=== PATIENT | male | born 1995 | race Caucasian/White ===

== ENCOUNTER 2016-08-23 23:48 | Emergency (ER) | payer SELFPAY ==
[~2016-08-23] VITALS: Ht 182.8 cm; Wt 104.3 kg
[~2016-08-23 23:48] MED LIST: ALBUTEROL0.09 MG/A2 INH; BACTRIM DS 8001 TA1 PO; CLARITIN10 MG PO; CYCLOBENZAPRINE10 MG PO; DICLOFENAC POTA50 MG PO; KEFLEX500 M1 PO; MEDROL DOSEPAK4 MG PO; MOTRIN400 MG PO; MOTRIN800 MG PO; Motrin,Rufen800 MG PO; NAPROSYN500 MG PO; NKHM; ULTRAM50 MG PO; ZITHROMAX Z PA250 MG PO
== END 2016-08-24 02:20 | disposition home or self-care (01) ==
LOC: ED 23:48
DX: S60.222A Contusion of left hand, initial encounter (principal); F17.200 Nicotine dependence, unspecified, uncomplicated; W23.0XXA Caught, crushed, jammed, or pinched between moving objects, initial encounter; Y93.89 Activity, other specified; Y92.89 Other specified places as the place of occurrence of the external cause; Y99.9 Unspecified external cause status

== ENCOUNTER 2016-09-27 08:22 | Emergency (ER) | payer SELFPAY ==
[~2016-09-27] VITALS: Wt 104.3 kg
[2016-09-27] MEDS ORDERED: Motrin,Rufen800 MG PO (10:03)
== END 2016-09-27 10:20 | disposition home or self-care (01) ==
LOC: ED 08:22
DX: S60.222A Contusion of left hand, initial encounter (principal); F17.200 Nicotine dependence, unspecified, uncomplicated; W23.0XXA Caught, crushed, jammed, or pinched between moving objects, initial encounter; Y93.89 Activity, other specified; Y92.89 Other specified places as the place of occurrence of the external cause; Y99.8 Other external cause status

== ENCOUNTER 2018-11-04 13:18 | Emergency (ER) | payer SELFPAY ==
[~2018-11-04] VITALS: Ht 182.8 cm; Wt 104.3 kg
[2018-11-04] MEDS ORDERED: NAPROSYN500 MG PO (14:51)
[2018-11-04] MEDS ORDERED: TYLENOL325 M1 PO (14:51)
== END 2018-11-04 15:35 | disposition home or self-care (01) ==
LOC: ED 13:18
DX: S89.92XA Unspecified injury of left lower leg, initial encounter (principal); X50.1XXA Overexertion from prolonged static or awkward postures, initial encounter; Y93.89 Activity, other specified; Y92.89 Other specified places as the place of occurrence of the external cause; Y99.8 Other external cause status

== ENCOUNTER 2021-08-05 16:07 | Emergency (ER) | payer SELFPAY ==
[~2021-08-05] VITALS: Ht 182.8 cm; Wt 124.7 kg
[~2021-08-05 16:07] MED LIST changes: +TYLENOL325 M1 PO
[2021-08-05 17:01] LABS: BASO % 0.3 % (0.0-1.0); EOS # 0.2 10*3/uL (0.0-0.4); EOS % 2.9 % (1.0-4.0); HEMATOCRIT 47.7 % (42.0-52.0); LYMPH # 1.5 10*3/uL (1.3-4.4); MEAN CORPUSCULAR HGB CONC 32.5 g/dl (33.0-37.0); MEAN PLATELET VOLUME 11.1 fl (9.6-12.3); MONO # 0.5 10*3/uL (0.1-1.0); MONO % 6.4 % (3.0-9.0); NEUT # 5.1 10*3/uL (2.3-7.9); NEUT % 70.3 % (47.0-73.0); PLATELET COUNT AUTOMATED 238 10*3/uL (130-400); RED BLOOD COUNT 5.75 10*6/uL (4.50-5.90); RED CELL DISTRI WIDTH 13.3 % (0-14.5); WHITE BLOOD COUNT 7.2 10*3/uL (4.8-10.8)
[2021-08-05 17:17] LABS: ALKALINE PHOSPHATASE 41 U/L (45-117); BUN 10 mg/dl (7-24); CHLORIDE 106 mmol/L (98-107); LIPASE 75 U/L (73-393); POTASSIUM 3.5 mmol/L (3.5-5.1); SGOT/AST 12 IU/L (3-35); SGPT/ALT 23 U/L (12-78); SODIUM 138 mmol/L (136-145); TOTAL PROTEIN 7.4 gm/dL (6.4-8.2)
== END 2021-08-05 19:49 | disposition home or self-care (01) ==
LOC: ED 16:07
PROVIDERS: Emergency Medicine
DX: K80.20 Calculus of gallbladder without cholecystitis without obstruction (principal); R11.10 Vomiting, unspecified

== ENCOUNTER 2023-09-01 15:53 | Emergency (ER) | payer SELFPAY ==
[~2023-09-01] VITALS: Ht 182.8 cm; Wt 104.3 kg
[2023-09-01] MEDS ORDERED: Ketorolac Tromethamine 30 MG/ML VIAL IM ONE (16:35)
[2023-09-01] MEDS ORDERED: ZANAFLEX4 MG PO (17:54)
[2023-09-01] MEDS ORDERED: NAPROSYN500 MG PO (17:54)
== END 2023-09-01 18:00 | disposition home or self-care (01) ==
LOC: ED 15:53
DX: S20.211A Contusion of right front wall of thorax, initial encounter (principal); M54.6 Pain in thoracic spine; W18.09XA Striking against other object with subsequent fall, initial encounter; Y93.89 Activity, other specified; Y92.89 Other specified places as the place of occurrence of the external cause; Y99.8 Other external cause status

== ENCOUNTER 2023-10-19 17:06 | Emergency (ER) | payer SELFPAY ==
[~2023-10-19] VITALS: Ht 182.8 cm; Wt 99.8 kg
[~2023-10-19 17:06] MED LIST changes: +ZANAFLEX4 MG PO
[2023-10-19] MEDS ORDERED: Acetaminophen/Hydrocodone 5 MG/325 MG TABLET PO ONE (20:00)
[2023-10-19] MEDS ORDERED: NAPROSYN500 MG PO (20:28)
== END 2023-10-19 20:30 | disposition home or self-care (01) ==
LOC: ED 17:06
DX: S93.402A Sprain of unspecified ligament of left ankle, initial encounter (principal); S90.32XA Contusion of left foot, initial encounter; J45.909 Unspecified asthma, uncomplicated; Z87.891 Personal history of nicotine dependence; W23.0XXA Caught, crushed, jammed, or pinched between moving objects, initial encounter; Y93.89 Activity, other specified; Y92.89 Other specified places as the place of occurrence of the external cause; Y99.8 Other external cause status

== ENCOUNTER 2024-02-04 05:46 | Emergency (ER) | payer OTHER ==
[~2024-02-04] VITALS: Ht 182.8 cm; Wt 99.8 kg
[2024-02-04] MEDS ORDERED: Ketorolac Tromethamine 60 MG/2 ML VIAL IM ONE (06:05)
== END 2024-02-04 06:24 | disposition home or self-care (01) ==
LOC: ED 05:46
DX: G56.31 Lesion of radial nerve, right upper limb (principal); Z79.899 Other long term (current) drug therapy

== ENCOUNTER 2025-03-28 19:18 | Emergency (ER) | payer OTHER ==
[~2025-03-28] VITALS: Ht 177.8 cm; Wt 111.1 kg
[2025-03-28] MEDS ORDERED: Cyclobenzaprine Hydrochlorid 10 MG TAB PO ONE (19:55)
[2025-03-28] MEDS ORDERED: Dexamethasone Sodium Phospha 20 MG/5 ML VIAL IM ONE (19:55)
[2025-03-28] MEDS ORDERED: MELOXICAM15 MG PO (21:05)
[2025-03-28] MEDS ORDERED: CYCLOBENZAPRINE5 M3 PO (21:05)
[2025-03-28] MEDS ORDERED: MEDROL DOSEPAK4 MG PO (21:05)
== END 2025-03-28 21:10 | disposition home or self-care (01) ==
LOC: ED 19:18
DX: M62.838 Other muscle spasm (principal); M54.50 Low back pain, unspecified; J45.909 Unspecified asthma, uncomplicated